=== PATIENT | female | born 1995 | race American Indian/Alaskan Native ===

== ENCOUNTER 2017-01-06 08:55 | Emergency (ER) | payer OTHER ==
[2017-01-06 10:14] LABS: Basophils % (Auto) 0.3 % (0.0-1.8); Eosinophils % (Auto) 0.2 % (0.0-4.3); Hematocrit 43.4 % (30.3-42.9); Hemoglobin 13.9 gm/dl (10.1-14.3); Mean Corpuscular HGB Conc 32 % (30-34); Mean Corpuscular Hemoglobin 27 pg (28-32); Mean Corpuscular Volume 84 fl (79-97); Platelet Count 271 K/mm3 (140-440); Red Blood Count 5.15 M/mm3 (3.65-5.03); Red Cell Distribution Width 14.7 % (13.2-15.2); White Blood Count 14.6 K/mm3 (4.5-11.0)
[2017-01-06 10:18] LABS: Bilirubin,Urine Small (Negative); Blood,Urine Negative (Negative); Ketones,Urine Negative (Negative); Leukocyte Esterase,Urine Negative (Negative); Nitrite,Urine Negative (Negative); Urobilinogen,Urine < 2.0 mg/dL (<2.0)
[2017-01-06 10:26] LABS: Alanine Aminotransferase 18 units/L (7-56); Albumin 4.5 g/dL (3.9-5); Albumin/Globulin Ratio 1.6 %; Alkaline Phosphatase 88 units/L (35-129); Anion Gap 18 mmol/L; BUN/Creatinine Ratio 16; Blood Urea Nitrogen 11 mg/dL (7-17); Calcium 9.7 mg/dL (8.4-10.2); Carbon Dioxide 21 mmol/L (22-30); Chloride 102.8 mmol/L (98-107); Glucose 102 mg/dL (65-100); Lipase 20 units/L (13-60); Potassium 3.9 mmol/L (3.6-5.0); Sodium 138 mmol/L (137-145); Total Protein 7.4 g/dL (6.3-8.2)
[2017-01-06 10:34] LABS: Mucus,Urine 2+ /HPF
[2017-01-06 14:50] VITALS: BP 118/69
[2017-01-06] MEDS ORDERED: ZOFRAN IV ONE (15:47)
[2017-01-06] MEDS ORDERED: NACL 0.9% 1000 ML 1,000 ML IV ONE (15:47)
--- NOTE | 2017-01-06 15:52 | Emergency Department Report ---
ED Abdominal Pain HPI - General Chief Complaint: Abdominal Pain Stated Complaint: ABDOMINAL PAIN Time Seen by Provider: 01/06/17 15:43 Source: patient Mode of arrival: Ambulatory Limitations: No Limitations - History of Present Illness Initial Comments: Patient is a 21 years old female with no significant past medical history, coming with abdominal pain associated with vomiting and brownish diarrhea. Patient denied any fever. MD Complaint: abdominal pain -: Gradual Severity scale (0 -10): 8 - Related Data Previous Rx's Medication Instructions Recorded Last Taken Type Ciprofloxacin HCl [Ciprofloxacin 500 mg PO Q12H #14 tab 01/06/17 Unknown Rx TAB] Ondansetron [Zofran Odt] 4 mg PO Q8HR PRN #14 tab.rapdis 01/06/17 Unknown Rx traMADol [Ultram 50 MG tab] 50 mg PO Q4HR PRN #14 tablet 01/06/17 Unknown Rx Allergies Allergy/AdvReac Type Severity Reaction Status Date / Time No Known Allergies Allergy Unverified 01/06/17 09:08 ED Review of Systems ROS: Stated complaint: ABDOMINAL PAIN Other details as noted in HPI Comment: All other systems reviewed and negative Constitutional: denies: chills, fever Respiratory: denies: cough, orthopnea, shortness of breath Cardiovascular: denies: chest pain, palpitations, dyspnea on exertion Gastrointestinal: abdominal pain, nausea, vomiting, diarrhea Neurological: denies: headache ED Past Medical Hx - Past Medical History Previous Medical History?: Yes Additional medical history: vaginal dleivery 07-28-2015 - Surgical History Past Surgical History?: No - Social History Smoking Status: Former Smoker Substance Use Type: Alcohol, Marijuana - Medications Home Medications: Home Medications Medication Instructions Recorded Confirmed Last Taken Type Ciprofloxacin HCl [Ciprofloxacin 500 mg PO Q12H #14 tab 01/06/17 Unknown Rx TAB] Ondansetron [Zofran Odt] 4 mg PO Q8HR PRN #14 tab.rapdis 01/06/17 Unknown Rx traMADol [Ultram 50 MG tab] 50 mg PO Q4HR PRN #14 tablet 01/06/17 Unknown Rx ED Physical Exam - General Limitations: No Limitations General appearance: alert, in no apparent distress - Head Head exam: Present: normocephalic - ENT ENT exam: Present: mucous membranes dry - Neck Neck exam: Present: normal inspection. Absent: tenderness, meningismus - Respiratory Respiratory exam: Present: normal lung sounds bilaterally. Absent: respiratory distress, wheezes, rales, rhonchi, chest wall tenderness, accessory muscle use, decreased breath sounds, prolonged expiratory - Cardiovascular Cardiovascular Exam: Present: tachycardia - GI/Abdominal GI/Abdominal exam: Present: soft, tenderness (left lower quadrant), normal bowel sounds. Absent: distended, guarding, rebound, rigid, organomegaly, mass, bruit, pulsatile mass, hernia - Extremities Exam Extremities exam: Present: normal inspection, full ROM, normal capillary refill - Back Exam Back exam: Present: normal inspection. Absent: CVA tenderness (R), CVA tenderness (L) - Neurological Exam Neurological exam: Present: alert, oriented X3, CN II-XII intact, normal gait - Skin Skin exam: Present: warm, dry, intact ED Course Vital Signs 01/06/17 01/06/17 09:08 14:49 Temperature 97.7 F 98.2 F Pulse Rate 115 H 82 Respiratory 28 H 16 Rate Blood Pressure 145/85 Blood Pressure 118/69 [Left] O2 Sat by Pulse 100 99 Oximetry - Reevaluation(s) Reevaluation #1: 01/06/17 18:14 Patient stated that she is feeling much better, no nausea no vomiting. I informed about her CT abdomen and pelvis results with incidental findings which include bilateral kidney stones in the need to follow-up with his urologist electively. ED Medical Decision Making - Lab Data Result diagrams: 01/06/17 09:41 01/06/17 09:41 - Radiology Data Radiology results: report reviewed CT abdomen and pelvis showed no acute finding, possible gastroenteritis. Critical care attestation.: If time is entered above; I have spent that time in minutes in the direct care of this critically ill patient, excluding procedure time. ED Disposition Clinical Impression: Abdominal pain, Gastroenteritis Disposition: DC-01 TO HOME OR SELFCARE Is pt being admited?: No Condition: Stable Instructions: Gastroenteritis (ED), Abdominal Pain (ED) Prescriptions: Ciprofloxacin HCl [Ciprofloxacin TAB] 500 mg PO Q12H #14 tab Ondansetron [Zofran Odt] 4 mg PO Q8HR PRN #14 tab.rapdis PRN Reason: Nausea And Vomiting traMADol [Ultram 50 MG tab] 50 mg PO Q4HR PRN #14 tablet PRN Reason: Pain Referrals: PRIMARY CARE, [Primary Care Provider] - 3-5 Days Forms: Work/School Release Form(ED)
--- NOTE | 2017-01-06 17:04 | Cat Scan Report ---
CT ABDOMEN AND PELVIS WITH CONTRAST INDICATION: Abdominal pain. COMPARISON: None similar at this institution. FINDINGS: Abdomen and pelvis CT performed following the intravenous administration of 100 cc of Omnipaque 300. LUNG BASES: Slight distal esophageal wall prominence/thickening, not excluded for gastroesophageal reflux and/or hiatal hernia, amongst others. ABDOMEN: Liver, spleen, gallbladder, pancreas, adrenals, IVC and aorta within normal limits. Nonhydronephrotic kidneys with few bilateral nonobstructing calculi measuring up to 5 mm at the left upper pole, image 117, series 2. No ascites. Few small, subcentimeter mesenteric and retroperitoneal lymph nodes, including few in the right lower quadrant mesentery measuring up to 9 mm, image 242, series 2. Nonopacified GI tract evaluation limited, though grossly nonobstructive. Appendix approximately 6-7 mm caliber as on axial images 275-310, series 2 without surrounding fat stranding. Liquid/poorly formed stool along the ascending colon. PELVIS: Uterus, adnexa/ovaries, urinary bladder and the rectosigmoid grossly within normal limits. No free fluid or significant adenopathy. Unremarkable bones. Umbilical piercing ornament incidentally noted. CONCLUSION: No acute significant CT abnormality with few incidental findings as nonobstructing bilateral nephrolithiasis, as above. Slight gastroenteritis or mesenteric adenitis as a diagnosis of exclusion may be considered in an appropriate setting. Please correlate. Thank you for the opportunity to participate in this patient's care.
[2017-01-06] MEDS ORDERED: ZOSYN/NS 3.375GM/50ML 3.375 GM/50 ML BAG IV SCH (18:00)
[2017-01-06] MEDS ORDERED: TORADOL IV ONE (18:18)
[2017-01-06] MEDS ORDERED: LEVAQUIN PO ONE (18:35)
== END 2017-01-06 19:02 | disposition home or self-care (01) ==
LOC: ED 08:55
DX: K52.9 Noninfective gastroenteritis and colitis, unspecified (principal); K92.9 Disease of digestive system, unspecified; Z87.891 Personal history of nicotine dependence; F12.10 Cannabis abuse, uncomplicated
CPT/HCPCS: 36415; 74177; 80053; 81001; 81025; 83690; 85025; 96361; 96374; 96375; 99284; J1885; J2405; J2543; J7030; Q9967